=== PATIENT | female | born 1945 | race Caucasian/White ===

== ENCOUNTER 2016-11-01 11:00 | Outpatient (CLI) | payer OTHER ==
[~2016-11-01 11:00] MED LIST: ALPRAZOLAM0.5 MG PO; ATENOLOL25 MG PO; CALCIUM WITH VIT D PO; CELEXA20 MG PO; ESTRADIOL0.5 MG PO; FISH OIL1200 MG PO; HYDROCHLOROTHIA25 MG PO; K-TABS10 MEQ PO; METFORMIN HCL500 MG PO; NAPROSYN250 MG PO; PRAVASTATIN SOD20 MG PO; PRILOSEC20 MG; PRILOSEC20 MG PO
--- NOTE | 2016-11-01 12:07 | DIAGNOSTIC IMAGING REPORT ---
PROCEDURE: MG BILATERAL SCREENING W/CAD INDICATION: SCREENING TECHNIQUE: Bilateral CC and MLO digital views. COMPARISON: Compared to 02/11/2015, 01/30/2014, and 03/12/2012. FINDINGS: Computer-aided detection applied. Moderately dense. No change. IMPRESSION: 1. Negative mammogram RESULT CODE: 1- Negative. A. A negative report should not delay biopsy if a dominant or clinically suspicious mass is present. 10-15% of cancers are not identified by x-ray. B. A negative report may reinforce clinical impression. C. Adenosis and dense breasts may obscure an underlying neoplasm. D. False positive reports average 6-10%. E.. A yearly screening mammogram is recommended. A reminder letter will be scheduled.
== END 2016-11-01 23:00 ==
LOC: MAM SRH 11:00
DX: Z12.31 Encounter for screening mammogram for malignant neoplasm of breast (principal)